=== PATIENT | male | born 1990 | race Caucasian/White ===

== ENCOUNTER 2025-04-02 13:53 | Outpatient (AMB) | payer BC, SELFPAY ==
--- NOTE | 2025-04-02 13:54 | A.OFFVIS_ITS ---
Vital Signs 04/02/25 13:55 Height 6 ft Weight 233 lb 11.04 oz BMI 31.7 BP 118/80 Blood Pressure Location Rt brachial Position Sitting Pulse 88 Pulse Source Pulse Oximeter Pulse Oximetry (%) 97 Oxygen Delivery Method Room Air Intake Visit Reasons: T2DM Intake Note: NEW Patient presents today to establish treatment for Type 2 Diabetes Mellitus: Last Diabetic eye exam was on: 02/2025 Last Podiatry exam was on: Patient does not see a Industrial Specialist Most recent HbA1c: 12.3%, 03/14/2025 Random Glucose- 143 mg/dL, Today Certified Pesticide Applicator Required: No Accompanied by: Self / Same As Patient Allergies No Known Allergies [No Known Allergies*] Allergy (Verified 04/02/25 13:59) Medication List - Last Reconciled 04/02/25 by Jeanna Antonio PA-C atorvastatin 40 mg PO DAILY guanfacine ER 2 mg PO DAILY metformin 1,000 mg PO BID HPI HPI T2DM: Details: Pt is a 35 y/o male who presents today to to establish care regarding his diabetes. Endo: DM was diagnosed about a year ago and at the time of diagnosis he was initially on metformin and Ozempic. He states that he had to stopped this because it caused GI discomfort but with diet changes and that GI discomfort he was able to lower his A1c back to a normal range. He states that he then stopped checking his blood sugars and eventually his diet worsened again. He states that he recently went to an urgent care and was told that his A1c was very high around 13 and he was restarted on metformin and also put on Januvia. He says that he is now currently tolerating the metformin and Januvia. He denies any hypoglycemic events. ozempic caused diarrhea and nausea. He has a family history of type 1 and type 2 diabetes. CV: Blood pressure today in the office is 118/80. He is not on any antihypertensives. Cholesterol is managed with atorvastatin 40 mg. [facility] Medical History (Updated 04/02/25 @ 14:33 by Jeanna Antonio PA-C) Hx of type 2 diabetes mellitus Surgical History History of tonsillectomy Family History Father No problems noted. Mother No problems noted. Social History (Updated 04/02/25 @ 13:56 by DERRELL Parrish) Alcohol intake: current Alcohol intake frequency: does not drink Patient Tobacco Use Status: Never used Tobacco Physical Exam Vital Signs: Last Vital Signs Pulse 88 04/02/25 13:55 BP 118/80 04/02/25 13:55 Pulse Ox 97 04/02/25 13:55 Oxygen Delivery Method Room Air 04/02/25 13:55 BMI result Body Mass Index 31.7 Const Orientation/consciousness: patient oriented x3 Neck Neck: Yes no lymphadenopathy Thyroid: Thyroid normal Carotids: no bruits Resp Auscultation: clear to auscultation bilaterally Cardio Rate: regular rate Rhythm: regular rhythm Heart sounds: S1 normal heart sound present and S2 normal heart sound present Peripheral pulses: dorsalis pedis present Neuro General: patient oriented x3, gait normal and no focal motor deficits Extrem Other: Monofilament sensation intact bilaterally. Vibratory sensation intact bilaterally. Skin intact. General: Yes normal to inspection Results Reviewed Results Reviewed: Laboratory Last Values Glucose (Clinic) 143 mg/dL (60-115) H 04/02/25 14:03 Assessment & Plan Assessment & Plan (1) Newly diagnosed diabetes: Code(s): E11.9 - Type 2 diabetes mellitus without complications Category: Medical Plan: We spent 60 minutes in [id number] time discussing the pathophysiology of type 1 and type 2 diabetes, complications associated with diabetes including but not limited to amputation risk, infection, stroke, heart attack, kidney disease etc.. We spent extensive time also discussing diet and reducing carbohydrate and sugar intake and increasing protein. I have also encouraged increased physical activity. stop januvia start trulicity 0.75 mg weekly continue metformin 1000 mg bid labs ordered today sensor applied and sumit downloaded for pt f/u it a few weeks. Sooner if needed. Referral to a neurology physician (2) Dyslipidemia: Code(s): E78.5 - Hyperlipidemia, unspecified Category: Medical Plan: On atorvastatin 40 mg. We will monitor. Orders: Orders C Peptide Today E11.9 - Type 2 diabetes mellitus without complications, E78.5 - Hyperlipidemia, unspecified Islet Cell Antibody Scrn/Titer Today E11.9 - Type 2 diabetes mellitus without complications, E78.5 - Hyperlipidemia, unspecified Comprehensive [place]. Panel Fast Today E11.9 - Type 2 diabetes mellitus without complications, E78.5 - Hyperlipidemia, unspecified Glutamic acid decarboxylase Ab Today E11.9 - Type 2 diabetes mellitus without complications, E78.5 - Hyperlipidemia, unspecified Hemoglobin A1c Today E11.9 - Type 2 diabetes mellitus without complications, E78.5 - Hyperlipidemia, unspecified Microalbumin, Random (w Creat) Today E11.9 - Type 2 diabetes mellitus without complications, E78.5 - Hyperlipidemia, unspecified Referrals Science Writer Nutrition Referral E11.9 - Type 2 diabetes mellitus without complications, E78.5 - Hyperlipidemia, unspecified Medications: New dulaglutide (Trulicity) 0.75 mg (0.5 mL) subcut QWEEK 2 mL 3RF blood-glucose sensor (DexMyStarAutograph G7 Sensor device) Use daily As directed to monitor glucose. change q 10 days 3 ea 5RF E11.65 - Type 2 diabetes mellitus with hyperglycemia, Z79.4 - superintendent terminal (current) use of insulin blood-glucose sensor (FreeStyle Nathaly 3 Plus Sensor device) Use daily As directed to monitor glucose 2 ea 5RF E08.29 - Diabetes mellitus due to underlying condition with other diabetic kidney complication, R80.9 - Proteinuria, unspecified, Z79.4 - FPC (current) use of insulin Coding Level of Care Code New Pt Level 5 (25675) Diagnoses Newly diagnosed diabetes E11.9 Dyslipidemia E78.5
[2025-04-02 13:55] VITALS: BP 118/80; PULSE 88; O2SAT 97; BMI 31.7
[2025-04-02 14:06] LABS: Glucose, Whole Blood 143 mg/dL (60-115)
== END 2025-04-02 14:47 | disposition home or self-care (01) ==
LOC: HO.ENCR 13:53
PROVIDERS: PCP Internal Medicine; Visit Provider Physician Assistant
DX: E11.9 Type 2 diabetes mellitus without complications (principal); E78.5 Hyperlipidemia, unspecified

== ENCOUNTER → 2025-04-02 13:53 | Outpatient (BNVA) | payer BC, SELFPAY | PROVIDERS: PCP Internal Medicine; Visit Provider Physician Assistant | DX: E11.9 Type 2 diabetes mellitus without complications (principal); E78.5 Hyperlipidemia, unspecified | CPT/HCPCS: 82947 ==

== ENCOUNTER 2025-04-30 08:57 | Outpatient (AMB) | payer OTHER, SELFPAY ==
[2025-04-30 08:59] VITALS: BP 114/78; PULSE 83; O2SAT 98; BMI 31.5
--- NOTE | 2025-04-30 08:59 | A.OFFVIS_ITS ---
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 He was recently seen here to establish care. Endo: DM was diagnosed around 2023. He is currently on Trulicity 0 0.75 mg weekly and metformin 1000 mg twice a day. -he was previously on metformin at the time of diagnosis but was able to change diet and come off of medication on his own. He also was on Ozempic which he tolerated well. -he does state today that metformin does cause GI upset and he has to be very careful with his diet. Ozempic did also cause some nausea and diarrhea. CGM-at last visit he was given a Nathaly 3 sensor. 95% in range, 5% hyperglycemia. He states that this has been very helpful for controlling his blood sugars and he is willing to pay [id number] for this. He denies any hypoglycemic events. He has a family history of type 1 and type 2 diabetes. Forgot to get labs done prior to today's appointment. CV: Blood pressure today in the office is 118/80. He is not on any antihypertensives. Cholesterol is managed with atorvastatin 40 mg. [facility] Medical History (Updated 04/02/25 @ 14:33 by Jeanna Antonio PA-C) Hx of type 2 diabetes mellitus Surgical History History of tonsillectomy Family History Father No problems noted. Mother No problems noted. Social History Alcohol intake: current Alcohol intake frequency: does not drink Patient Tobacco Use Status: Never used Tobacco Physical Exam Vital Signs: Last Vital Signs Pulse 83 04/30/25 08:59 BP 114/78 04/30/25 08:59 Pulse Ox 98 04/30/25 08:59 Oxygen Delivery Method Room Air 04/30/25 08:59 BMI result Body Mass Index 31.5 Const Orientation/consciousness: patient oriented x3 Neck Neck: Yes no lymphadenopathy Thyroid: Thyroid normal Carotids: no bruits Resp Auscultation: clear to auscultation bilaterally Cardio Rate: regular rate Rhythm: regular rhythm Heart sounds: S1 normal heart sound present and S2 normal heart sound present Peripheral pulses: dorsalis pedis present Neuro General: patient oriented x3, gait normal and no focal motor deficits Extrem Other: Monofilament sensation intact bilaterally. Vibratory sensation intact bilaterally. Skin intact. General: Yes normal to inspection Results AMB Hemoglobin A1c AMB Hemoglobin A1c 9.1 % Last Edit by DERRELL Eaton on 04/30/25 09:15 Results Reviewed Results Reviewed: Laboratory Last Values Glucose (Clinic) 102 mg/dL (60-115) 04/30/25 09:06 Assessment & Plan Assessment & Plan (1) Newly diagnosed diabetes: Code(s): E11.9 - Type 2 diabetes mellitus without complications Category: Medical Plan: Increase Trulicity to 1.5 mg weekly Continue metformin as he is now tolerating it with careful diet. We did discuss at the follow up possible possibly reducing the metformin dosing. Sensors ordered Follow up in 3 months. Sooner if needed. Reminded him to complete labs. (2) Dyslipidemia: Code(s): E78.5 - Hyperlipidemia, unspecified Category: Medical Plan: Continue atorvastatin. We will check labs. Orders: Orders AMB Hemoglobin A1c Today E11.9 - Type 2 diabetes mellitus without complications, Z13.9 - Encounter for screening, unspecified Medications: New dulaglutide (Trulicity) 1.5 mg (0.5 mL) subcut QWEEK 2 mL 4RF metformin 1,000 mg PO BID 180 tabs 2RF Refilled blood-glucose sensor (FreeStyle Nathaly 3 Plus Sensor device) Use daily As directed to monitor glucose 6 ea 4RF E08.29 - Diabetes mellitus due to underlying condition with other diabetic kidney complication, R80.9 - Proteinuria, unspecified, Z79.4 - exterminator helper (current) use of insulin blood-glucose sensor (FreeStyle Nathaly 3 Plus Sensor device) Use daily As directed to monitor glucose 6 ea 4RF E11.9 - Type 2 diabetes mellitus without complications Coding Level of Care Code Est Pt Level 4 (72079) Complex EM visit Add On G2211 Diagnoses Newly diagnosed diabetes E11.9 Dyslipidemia E78.5
[2025-04-30 09:10] LABS: Glucose, Whole Blood 102 mg/dL (60-115)
== END 2025-04-30 09:24 | disposition home or self-care (01) ==
LOC: HO.ENCR 08:57
PROVIDERS: PCP Internal Medicine; Visit Provider Physician Assistant
DX: E11.9 Type 2 diabetes mellitus without complications (principal); E78.5 Hyperlipidemia, unspecified; Z13.9 Encounter for screening, unspecified

== ENCOUNTER → 2025-04-30 08:57 | Outpatient (BNVA) | payer OTHER, SELFPAY | PROVIDERS: PCP Internal Medicine; Visit Provider Physician Assistant | DX: E11.9 Type 2 diabetes mellitus without complications (principal); E78.5 Hyperlipidemia, unspecified; R80.9 Proteinuria, unspecified; Z79.4 Long term (current) use of insulin; Z79.84 Long term (current) use of oral hypoglycemic drugs; Z79.899 Other long term (current) drug therapy | CPT/HCPCS: 82947; 83036 ==

== ENCOUNTER 2025-08-24 09:21 | Outpatient (AMB) | payer BC, SELFPAY ==
--- NOTE | 2025-08-24 09:24 | A.OFFVIS_ITS ---
Vital Signs 08/24/25 09:27 Height 5 ft 11 in Weight 237 lb 7.005 oz BMI 33.1 BP 110/82 Blood Pressure Location Rt brachial Position Sitting Pulse 87 Pulse Source Pulse Oximeter Pulse Oximetry (%) 97 Oxygen Delivery Method Room Air Intake Visit Reasons: Type 2 dm Intake Note: Patient present today for Type 2 Diabetes Mellitus Last Diabetic eye exam: Last exam was on 03/2025 Last Podiatry Visit: Doesn't have one Random Glucose: 94 mg/dl HgA1C: 6.0% Senior Cognos Developer Required: No Allergies No Known Allergies (No Known Allergies*) Allergy (Verified 08/24/25 09:30) Medication List - Last Reconciled 08/24/25 by Jeanna Antonio PA-C atorvastatin 40 mg PO DAILY blood-glucose sensor (Mango ReservationsStyle Nathaly 3 Plus Sensor device) Use daily As directed to monitor glucose dulaglutide (Trulicity) 1.5 mg (0.5 mL) subcut QWEEK fluoxetine (Prozac) 10 mg PO DAILY guanfacine ER 2 mg PO DAILY HPI HPI Type 2 dm: Details: Pt is a 35 y/o male who presents today for a follow up regarding his diabetes. Endo: DM was diagnosed around 2023. His A1c today is 6 down from 9.1. He is currently on Trulicity 1.5 mg weekly and metformin 1000 mg twice a day. -he just started the Trulicity 1.5 mg last week. Tolerating this well. -he does state today that metformin does cause GI upset and he has to be very careful with his diet. Ozempic did also cause some nausea and diarrhea. CGM-at last visit he was given a Nathaly 3 sensor. 100% in range, 0% hyperglycemia, 0% hypoglycemia. He states that this has been very helpful for controlling his blood sugars and he is willing to pay [id number] for this. He denies any hypoglycemic events. He has lost about 40 lb this year with diet and exercise He has a family history of type 1 and type 2 diabetes. Forgot to get labs done prior to today's appointment. CV: Blood pressure today in the office is 110/82. He is not on any antihypertensives. Cholesterol is managed with atorvastatin 40 mg. He has not had lipids rechecked since starting atorvastatin [facility] Medical History (Updated 08/24/25 @ 09:42 by Jeanna Antonio PA-C) Hx of type 2 diabetes mellitus Surgical History History of tonsillectomy Family History Father No problems noted. Mother No problems noted. Social History Alcohol intake: current Alcohol intake frequency: does not drink Patient Tobacco Use Status: Never used Tobacco Physical Exam Vital Signs: Last Vital Signs Pulse 87 08/24/25 09:27 BP 110/82 08/24/25 09:27 Pulse Ox 97 08/24/25 09:27 Oxygen Delivery Method Room Air 08/24/25 09:27 BMI result Body Mass Index 33.1 Const Orientation/consciousness: patient oriented x3 HEENT Ears: hearing grossly normal bilaterally Neck Thyroid: Thyroid normal Lymphatic: no lymphadenopathy noted Resp Auscultation: clear to auscultation bilaterally Cardio Rate: regular rate Rhythm: regular rhythm Heart sounds: S1 normal heart sound present and S2 normal heart sound present Skin General skin exam: no rashes or lesions noted Neuro General: patient oriented x3, gait normal and no focal motor deficits Results AMB Hemoglobin A1c AMB Hemoglobin A1c 6.0 % Last Edit by DERRELL Eaton on 08/24/25 09:41 Results Reviewed Results Reviewed: Laboratory Last Values Glucose (Clinic) 94 mg/dL (60-115) 08/24/25 09:32 Assessment & Plan Assessment & Plan (1) Controlled type 2 diabetes mellitus: Code(s): E11.9 - Type 2 diabetes mellitus without complications Category: Medical Plan: continue trulicity 1.5 mg weekly reduce metformin to 500 mg bid (2) Dyslipidemia: Code(s): E78.5 - Hyperlipidemia, unspecified Category: Medical Plan: Lipids and LFTs ordered Orders: Orders Lipid Panel Today E11.9 - Type 2 diabetes mellitus without complications, E78.5 - Hyperlipidemia, unspecified AMB Hemoglobin A1c Today E11.9 - Type 2 diabetes mellitus without complications, Z13.9 - Encounter for screening, unspecified Hemoglobin A1c Today E11.9 - Type 2 diabetes mellitus without complications, E78.5 - Hyperlipidemia, unspecified, R73.01 - Impaired fasting glucose Comprehensive [place]. Panel Fast Today E11.9 - Type 2 diabetes mellitus without complications, E78.5 - Hyperlipidemia, unspecified Microalbumin, Random (w Creat) Today E11.9 - Type 2 diabetes mellitus without complications, E78.5 - Hyperlipidemia, unspecified Medications: New metformin 500 mg PO BIDWMEAL 180 tabs 1RF metformin 500 mg PO BIDWMEAL 180 tabs 1RF Coding Level of Care Code Est Pt Level 4 (43265) Complex EM visit Add On G2211 Diagnoses Controlled type 2 diabetes mellitus E11.9 Dyslipidemia E78.5
[2025-08-24 09:27] VITALS: BP 110/82; PULSE 87; O2SAT 97; BMI 33.1
[2025-08-24 09:35] LABS: Glucose, Whole Blood 94 mg/dL (60-115)
== END 2025-08-24 09:46 | disposition home or self-care (01) ==
LOC: HO.ENCR 09:22
PROVIDERS: PCP Internal Medicine; Visit Provider Physician Assistant
DX: Z13.9 Encounter for screening, unspecified (principal); E11.9 Type 2 diabetes mellitus without complications; E78.5 Hyperlipidemia, unspecified

== ENCOUNTER → 2025-08-24 09:21 | Outpatient (BNVA) | payer BC, SELFPAY | PROVIDERS: PCP Internal Medicine; Visit Provider Physician Assistant | DX: E11.9 Type 2 diabetes mellitus without complications (principal); E78.5 Hyperlipidemia, unspecified; Z79.84 Long term (current) use of oral hypoglycemic drugs | CPT/HCPCS: 82947; 83036 ==